=== PATIENT | female | born 1950 | race Hispanic/Latino ===

== ENCOUNTER 2023-11-16 17:57 | Inpatient (IN) | payer MEDICARE ==
[~2023-11-16] VITALS: Ht 154.9 cm; Wt 79.4 kg
[2023-11-16 18:44] LABS: BASOPHILS % 0.2 % (0.0-1.0); HEMATOCRIT 42.6 % (34.2-44.1); LYMPHOCYTES # (AUTO) 2.2 (1.0-3.2); LYMPHOCYTES % 10.7 % (18.0-39.1); MEAN CORPUSCULAR HEMOGLOBIN 29.8 pg (28-32); MEAN CORPUSCULAR HGB CONC 32.9 g/dL (31-35); MEAN CORPUSCULAR VOLUME 90.6 fL (81-99); MONOCYTES # (AUTO) 1.5 (0.2-0.8); MONOCYTES % 7.1 % (4.4-11.3); NEUTROPHILS # (AUTO) 16.8 (2.1-6.9); NEUTROPHILS % 81.1 % (38.7-80.0); PLATELET COUNT 232 x10e3/uL (140-360); RED CELL DISTRIBUTION WIDTH 12.6 % (11.7-14.4); WHITE BLOOD COUNT 20.74 x10e3/uL (4.8-10.8)
[2023-11-16] MEDS: ONDANSETRON HCL INJ 2MG/ML 2ML 2 MG/ML VIAL IV STA (19:02)
[2023-11-16] MEDS: SODIUM CHLORIDE 0.9% 1000ML 1,000 ML IV STA ×2 (19:02)
[2023-11-16] MEDS: Morphine 4mg INJECTION 4 MG/ML INJ IV STA (19:03)
[2023-11-16 19:04] LABS: CLARITY,URINE HAZY (CLEAR); COLOR,URINE AMBER (YELLOW); GLUCOSE, URINE NEGATIVE (NEGATIVE); KETONES,URINE TRACE (NEGATIVE); LEUKOCYTE ESTERASE ,URINE NEGATIVE (NEGATIVE); NITRITE,URINE NEGATIVE (NEGATIVE); PH,URINE 5.5 (5 - 7)
[2023-11-16 19:05] LABS: BILIRUBIN,URINE SMALL (NEGATIVE); PROTEIN,URINE DIPSTICK 1+ (NEGATIVE); URINE UROBILINOGEN 0.2 mg/dL (0.2 - 1)
[2023-11-16] MEDS: ACETAMINOPHEN 325 MG TAB PO STA (19:05)
[2023-11-16 19:18] LABS: AMORPHOUS SEDIMENT,URINE FEW (FEW); BACTERIA,URINE FEW /HPF; EPITHELIAL CELLS,URINE FEW /LPF; WBC,URINE (MAN) 0-5 /HPF (0-5)
[2023-11-16 19:22] LABS: ALBUMIN 3.5 g/dL (3.5-5.0); ALBUMIN/GLOBULIN RATIO 1.5 (0.8-2.0); ANION GAP 18.1 mmol/L (8-16); BILIRUBIN,TOTAL 0.9 mg/dL (0.2-1.2); CALCIUM 9.2 mg/dL (8.4-10.2); CREATININE, SERUM 1.65 mg/dL (0.57-1.11); POTASSIUM 4.1 mmol/L (3.5-5.1); TOTAL PROTEIN 5.8 g/dL (6.5-8.1)
[2023-11-16 19:28] LABS: TROPONIN I 0.023 ng/mL (0-0.300)
[2023-11-16] MEDS ORDERED: IOPAMIDOL 370 MG/ML 100 ML INFUS..BTL INJ ONE (20:35)
[2023-11-16 22:00] VITALS: PULSE 95; RESP 16; TEMP 99.5
[2023-11-16] MEDS ORDERED: ONDANSETRON HCL INJ 2MG/ML 2ML 2 MG/ML VIAL IV PRN (22:00)
[2023-11-16] MEDS ORDERED: Morphine 4mg INJECTION 4 MG/ML INJ IV PRN (22:00)
[2023-11-16] MEDS: SODIUM CHLORIDE 0.9% 1000ML 1,000 ML IV SCH (23:39)
[2023-11-17] VITALS (10 sets, daily range): BP systolic 113–141; BP diastolic 60–82; PULSE 92–104; RESP 16–20; TEMP 98.4–99.7; O2SAT 96–100
[2023-11-17] MEDS ORDERED: DICYCLOMINE HCL10 MG PO (02:41)
[2023-11-17] MEDS ORDERED: METOPROLOL SUCC25 MG PO (02:41)
[2023-11-17] MEDS ORDERED: AMLODIPINE BESYL5 MG PO (02:41)
[2023-11-17] MEDS ORDERED: ONDANSETRON ODT4 MG PO (02:41)
[2023-11-17] MEDS ORDERED: OLMESARTAN-HCT1 EAC2 PO (02:41)
[2023-11-17] MEDS ORDERED: ROSUVASTATIN CA10 MG PO (02:41)
[2023-11-17] MEDS ORDERED: MOUNJARO5 MG/0.5 M SC (02:44)
[2023-11-17 07:36] LABS: BASOPHILS # (AUTO) 0.1 (0.0-0.1); BASOPHILS % 0.4 % (0.0-1.0); EOSINOPHILS % 0.2 % (0.0-6.0); HEMATOCRIT 37.3 % (34.2-44.1); HEMOGLOBIN 12.2 g/dL (12.0-16.0); LYMPHOCYTES # (AUTO) 1.9 (1.0-3.2); LYMPHOCYTES % 13.7 % (18.0-39.1); MEAN CORPUSCULAR HGB CONC 32.7 g/dL (31-35); MEAN CORPUSCULAR VOLUME 91.9 fL (81-99); MONOCYTES # (AUTO) 1.1 (0.2-0.8); MONOCYTES % 8.3 % (4.4-11.3); NEUTROPHILS # (AUTO) 10.4 (2.1-6.9); NEUTROPHILS % 76.9 % (38.7-80.0); PLATELET COUNT 151 x10e3/uL (140-360); RED BLOOD COUNT 4.06 x10e6/uL (3.6-5.1); RED CELL DISTRIBUTION WIDTH 12.7 % (11.7-14.4); WHITE BLOOD COUNT 13.55 x10e3/uL (4.8-10.8)
[2023-11-17 08:07] LABS: ALBUMIN 2.7 g/dL (3.5-5.0); ALBUMIN/GLOBULIN RATIO 1.1 (0.8-2.0); ANION GAP 13.8 mmol/L (8-16); BILIRUBIN,TOTAL 0.6 mg/dL (0.2-1.2); CALCIUM 8.1 mg/dL (8.4-10.2); CREATININE, SERUM 1.21 mg/dL (0.57-1.11); POTASSIUM 3.8 mmol/L (3.5-5.1); TOTAL PROTEIN 5.1 g/dL (6.5-8.1)
[2023-11-17 08:13] LABS: TROPONIN I 0.015 ng/mL (0-0.300)
[2023-11-17] MEDS ORDERED: DEXTROSE 50% SYRINGE 50 ML IV PRN (11:00)
[2023-11-17] MEDS: INSULIN LISPRO 100 UNIT/1 ML 3ML VIAL SQ SCH (11:30)
[2023-11-17 14:56] LABS: TROPONIN I 0.021 ng/mL (0-0.300)
[2023-11-17] MEDS: OLMESARTAN 20 MG TAB PO SCH (21:39)
[2023-11-17] MEDS: HYDROCHLOROTHIAZIDE 25 MG TAB PO SCH (21:39)
[2023-11-18] VITALS: BP 128/64; PULSE 97; RESP 18; TEMP 99.6; O2SAT 99
[2023-11-18] MEDS: ACETAMINOPHEN 325 MG TAB PO PRN (00:40)
[2023-11-18 04:00] VITALS: BP 126/72; PULSE 88; RESP 18; TEMP 98.4; O2SAT 99
[2023-11-18 05:40] LABS: BASOPHILS # (AUTO) 0.1 (0.0-0.1); BASOPHILS % 0.6 % (0.0-1.0); EOSINOPHILS # (AUTO) 0.2 (0.0-0.4); EOSINOPHILS % 1.4 % (0.0-6.0); HEMATOCRIT 35.9 % (34.2-44.1); HEMOGLOBIN 11.3 g/dL (12.0-16.0); LYMPHOCYTES # (AUTO) 2.1 (1.0-3.2); LYMPHOCYTES % 17.4 % (18.0-39.1); MEAN CORPUSCULAR HEMOGLOBIN 29.9 pg (28-32); MEAN CORPUSCULAR HGB CONC 31.5 g/dL (31-35); MONOCYTES # (AUTO) 0.9 (0.2-0.8); MONOCYTES % 7.9 % (4.4-11.3); NEUTROPHILS # (AUTO) 8.5 (2.1-6.9); NEUTROPHILS % 72.1 % (38.7-80.0); PLATELET COUNT 151 x10e3/uL (140-360); RED BLOOD COUNT 3.78 x10e6/uL (3.6-5.1); RED CELL DISTRIBUTION WIDTH 12.5 % (11.7-14.4); WHITE BLOOD COUNT 11.82 x10e3/uL (4.8-10.8)
[2023-11-18 06:11] LABS: ANION GAP 13.5 mmol/L (8-16); CALCIUM 8.2 mg/dL (8.4-10.2); CREATININE, SERUM 0.87 mg/dL (0.57-1.11); POTASSIUM 3.5 mmol/L (3.5-5.1)
[2023-11-18 06:22] LABS: TROPONIN I 0.015 ng/mL (0-0.300)
[2023-11-18] MEDS: AMLODIPINE BESYLATE 5 MG TAB PO SCH (08:46)
[2023-11-18] MEDS: CRESTOR 10MG PO SCH ×2 (08:46→09:00)
[2023-11-18] MEDS: METOPROLOL SUCCINATE 25 MG TAB XL PO SCH (08:47)
[2023-11-18 09:32] VITALS: BP 142/59; PULSE 88; RESP 15; TEMP 98.2; O2SAT 99
[2023-11-18 12:26] VITALS: BP 151/88; PULSE 119; RESP 17; TEMP 98; O2SAT 100
[2023-11-18 16:53] VITALS: BP 150/66; PULSE 86; RESP 17; TEMP 98.2; O2SAT 94
[2023-11-18 20:00] VITALS: BP 141/72; PULSE 92; RESP 18; TEMP 98.2; O2SAT 98
[2023-11-18] MEDS: POTASSIUM CHLORIDE 10MEQ EA PO ONE (23:55)
[2023-11-19 00:29] VITALS: BP 117/70; PULSE 100; RESP 19; TEMP 98.5; O2SAT 99
[2023-11-19 05:35] LABS: BASOPHILS % 0.4 % (0.0-1.0); EOSINOPHILS # (AUTO) 0.2 (0.0-0.4); EOSINOPHILS % 1.8 % (0.0-6.0); HEMATOCRIT 33.6 % (34.2-44.1); HEMOGLOBIN 10.6 g/dL (12.0-16.0); LYMPHOCYTES # (AUTO) 1.5 (1.0-3.2); LYMPHOCYTES % 13.9 % (18.0-39.1); MEAN CORPUSCULAR HGB CONC 31.5 g/dL (31-35); MEAN CORPUSCULAR VOLUME 95.2 fL (81-99); MONOCYTES # (AUTO) 0.8 (0.2-0.8); MONOCYTES % 7.2 % (4.4-11.3); NEUTROPHILS # (AUTO) 8.1 (2.1-6.9); PLATELET COUNT 153 x10e3/uL (140-360); RED BLOOD COUNT 3.53 x10e6/uL (3.6-5.1); RED CELL DISTRIBUTION WIDTH 12.5 % (11.7-14.4); WHITE BLOOD COUNT 10.64 x10e3/uL (4.8-10.8)
[2023-11-19 06:37] LABS: ANION GAP 15.6 mmol/L (8-16); CALCIUM 8.2 mg/dL (8.4-10.2); CREATININE, SERUM 0.86 mg/dL (0.57-1.11); MAGNESIUM 1.2 MG/DL (1.3-2.1); PHOSPHORUS 1.9 MG/DL (2.3-4.7); POTASSIUM 3.6 mmol/L (3.5-5.1)
[2023-11-19 07:21] LABS: FREE T4 (FREE THYROXINE) 1.32 ng/dL (0.8-1.8); THYROID STIMULATING HORMONE 1.351 uIU/mL (0.350-4.940)
[2023-11-19 07:50] VITALS: BP 129/84; PULSE 98; RESP 20; TEMP 97.5; O2SAT 98
[2023-11-19 07:51] VITALS: BP 129/84; PULSE 98; RESP 20; TEMP 98.3; O2SAT 98
[2023-11-19] MEDS: MAGNESIUM SULFATE 2GM/50ML 50 ML IV ONE ×2 (10:01→12:21)
[2023-11-19 12:00] VITALS: BP 157/64; PULSE 84; RESP 20; TEMP 99.5; O2SAT 100
[2023-11-19] MEDS: SODIUM PHOSPHATE IN 0.9 % NACL 15 MMOL in SODIUM CHLORIDE 0.9% 250ML 250 ML IV ONE (12:49)
[2023-11-19 17:00] VITALS: BP 128/69; PULSE 100; RESP 20; TEMP 98.4; O2SAT 99
[2023-11-19 20:00] VITALS: BP 156/80; PULSE 80; RESP 20; TEMP 98.5; O2SAT 97
[2023-11-20] VITALS: BP 132/87; PULSE 77; RESP 18; TEMP 98; O2SAT 96
[2023-11-20 08:11] VITALS: BP 157/91; PULSE 80; RESP 19; TEMP 98.9; O2SAT 99
[2023-11-20 10:02] VITALS: BP 157/91; PULSE 80; RESP 19; TEMP 98.9; O2SAT 99
[2023-11-20 10:41] LABS: BASOPHILS # (AUTO) 0.1 (0.0-0.1); BASOPHILS % 0.8 % (0.0-1.0); EOSINOPHILS # (AUTO) 0.2 (0.0-0.4); EOSINOPHILS % 1.3 % (0.0-6.0); HEMOGLOBIN 11.4 g/dL (12.0-16.0); LYMPHOCYTES % 17.6 % (18.0-39.1); MEAN CORPUSCULAR HEMOGLOBIN 30.1 pg (28-32); MEAN CORPUSCULAR HGB CONC 32.6 g/dL (31-35); MEAN CORPUSCULAR VOLUME 92.3 fL (81-99); MONOCYTES # (AUTO) 0.8 (0.2-0.8); MONOCYTES % 6.9 % (4.4-11.3); NEUTROPHILS # (AUTO) 8.2 (2.1-6.9); NEUTROPHILS % 72.8 % (38.7-80.0); PLATELET COUNT 202 x10e3/uL (140-360); RED BLOOD COUNT 3.79 x10e6/uL (3.6-5.1); RED CELL DISTRIBUTION WIDTH 12.4 % (11.7-14.4); WHITE BLOOD COUNT 11.28 x10e3/uL (4.8-10.8)
[2023-11-20 11:15] LABS: ANION GAP 16.5 mmol/L (8-16); CALCIUM 8.7 mg/dL (8.4-10.2); CREATININE, SERUM 0.77 mg/dL (0.57-1.11); MAGNESIUM 1.6 MG/DL (1.3-2.1); POTASSIUM 3.5 mmol/L (3.5-5.1)
[2023-11-20] MEDS ORDERED: FENTANYL CITRATE/PF 100MCG/2 ML INJ ONE (11:19)
[2023-11-20] MEDS ORDERED: MIDAZOLAM HCL 2 MG/2 ML VIAL ONE (11:19)
[2023-11-20] MEDS ORDERED: SEVOFLURANE INHAL SOLN 250 ML PEN BTL ONE (11:29)
[2023-11-20] MEDS ORDERED: PROPOFOL IV EMULSION 10 MG/ML 20 ML VIAL ONE (11:29)
[2023-11-20] MEDS ORDERED: ONDANSETRON HCL INJ 2MG/ML 2ML 2 MG/ML VIAL ONE (11:29)
[2023-11-20] MEDS ORDERED: DEXAMETHASONE SOD PHOS INJ 4 MG/ML SDV ONE (11:29)
[2023-11-20] MEDS ORDERED: METOCLOPRAMIDE HCL 10 MG/2ML VIAL ONE (11:29)
[2023-11-20 11:34] VITALS: BP 149/65; PULSE 82; RESP 18; TEMP 99.1; O2SAT 99
[2023-11-20 11:35] LABS: PHOSPHORUS 2.2 MG/DL (2.3-4.7)
[2023-11-20] MEDS: MAGNESIUM SULFATE 2GM/50ML 50 ML IV ONE (13:17)
[2023-11-20] MEDS: LABETALOL HCL 5 MG/ML 20ML VIAL IV ONE (16:44)
[2023-11-20 17:55] VITALS: BP 147/79; PULSE 76; RESP 20; TEMP 96.8; O2SAT 97
[2023-11-20] MEDS: POTASSIUM PHOSPHATE 15 MM in SODIUM CHLORIDE 0.9% 250ML 250 ML IV ONE (18:11)
[2023-11-20 20:42] VITALS: BP 143/71; PULSE 83; RESP 20; TEMP 98.5; O2SAT 98
[2023-11-21] VITALS (8 sets, daily range): BP systolic 129–176; BP diastolic 61–98; PULSE 73–101; RESP 16–20; TEMP 97.3–98.7; O2SAT 96–100
[2023-11-21 05:28] LABS: BASOPHILS # (AUTO) 0.1 (0.0-0.1); BASOPHILS % 0.6 % (0.0-1.0); EOSINOPHILS # (AUTO) 0.3 (0.0-0.4); EOSINOPHILS % 2.9 % (0.0-6.0); HEMATOCRIT 33.2 % (34.2-44.1); HEMOGLOBIN 10.8 g/dL (12.0-16.0); LYMPHOCYTES # (AUTO) 2.2 (1.0-3.2); LYMPHOCYTES % 22.8 % (18.0-39.1); MEAN CORPUSCULAR HEMOGLOBIN 30.6 pg (28-32); MEAN CORPUSCULAR HGB CONC 32.5 g/dL (31-35); MEAN CORPUSCULAR VOLUME 94.1 fL (81-99); MONOCYTES # (AUTO) 0.8 (0.2-0.8); MONOCYTES % 7.8 % (4.4-11.3); NEUTROPHILS # (AUTO) 6.3 (2.1-6.9); NEUTROPHILS % 65.3 % (38.7-80.0); PLATELET COUNT 202 x10e3/uL (140-360); RED BLOOD COUNT 3.53 x10e6/uL (3.6-5.1); RED CELL DISTRIBUTION WIDTH 12.7 % (11.7-14.4); WHITE BLOOD COUNT 9.71 x10e3/uL (4.8-10.8)
[2023-11-21 05:50] LABS: ANION GAP 15.5 mmol/L (8-16); CALCIUM 8.6 mg/dL (8.4-10.2); CREATININE, SERUM 0.74 mg/dL (0.57-1.11); MAGNESIUM 1.5 MG/DL (1.3-2.1); POTASSIUM 3.5 mmol/L (3.5-5.1)
[2023-11-21 06:14] LABS: PHOSPHORUS 2.9 MG/DL (2.3-4.7)
[2023-11-21] MEDS: MAGNESIUM SULFATE 2GM/50ML 50 ML IV ONE (09:53)
[2023-11-21] MEDS: MAGNESIUM SULF 1GRAM/DEXTROSE 100 ML IV ONE (12:29)
[2023-11-22] VITALS: BP 136/80; PULSE 80; RESP 18; TEMP 97.9; O2SAT 97
[2023-11-22 04:00] VITALS: BP 155/86; PULSE 79; RESP 16; TEMP 98.1; O2SAT 97
[2023-11-22 08:00] VITALS: BP 144/72; PULSE 80; RESP 17; TEMP 98.3; O2SAT 98
[2023-11-22 08:50] VITALS: BP 144/72; PULSE 80; RESP 17; TEMP 98.3; O2SAT 98
[2023-11-22 12:00] VITALS: BP 135/62; PULSE 97; RESP 19; TEMP 98.3; O2SAT 97
== END 2023-11-22 13:45 | disposition home or self-care (01) | DRG 742 ==
LOC: ER 18:05 → ERHOLD 21:11 → MED/SURG 22:39
PROVIDERS: ADMIT Internal Medicine; ATTEND Internal Medicine
PROC: 0U7 Female Reproductive System, Dilation (ICD-10-PCS; principal; 2023-11-20 15:32)
DX: N71.9 Inflammatory disease of uterus, unspecified (principal); N17.9 Acute kidney failure, unspecified; E83.39 Other disorders of phosphorus metabolism; E11.22 Type 2 diabetes mellitus with diabetic chronic kidney disease; C55 Malignant neoplasm of uterus, part unspecified; I12.9 Hypertensive chronic kidney disease with stage 1 through stage 4 chronic kidney disease, or unspecified chronic kidney disease; N18.31 Chronic kidney disease, stage 3a; I95.9 Hypotension, unspecified; E86.0 Dehydration; N95.0 Postmenopausal bleeding; N93.8 Other specified abnormal uterine and vaginal bleeding; E78.5 Hyperlipidemia, unspecified; E87.6 Hypokalemia; K76.0 Fatty (change of) liver, not elsewhere classified; E83.42 Hypomagnesemia; Z79.85 Long-term (current) use of injectable non-insulin antidiabetic drugs
CPT/HCPCS: 36415; 74177; 76856; 80048; 80053; 80061; 81001; 82550; 82948; 83036; 83605; 83690; 83735; 84100; 84439; 84443; 84484; 85025; 87040; 87086; 88305; 88342; 93005; 99284; J1100; J2250; J2270; J2405; J2543; J2765; J3475; J7030; J7050; Q9967